=== PATIENT | female | born 1990 | race Caucasian/White ===

== ENCOUNTER 2017-08-07 03:12 | Emergency (ER) | payer MEDICAID ==
[2017-08-07 04:00] LABS: APPEARANCE,URINE CLOUDY; BILIRUBIN,URINE NEGATIVE (NEGATIVE); GLUCOSE, URINE NEGATIVE (NEGATIVE); KETONES,URINE NEGATIVE (NEGATIVE); LEUKOCYTE ESTERASE,URINE LARGE (NEGATIVE); NITRITE,URINE NEGATIVE (NEGATIVE); PROTEIN,URINE 100 mg/dL (NEGATIVE); URINE SPECIFIC GRAVITY 1.009; UROBILINOGEN,URINE NEGATIVE mg/dL (<2.0)
[2017-08-07 05:06] LABS: ABSOLUTE EOSINOPHILS # (AUTO) 0.1 10^3/uL (0.0-0.6); ABSOLUTE LYMPHOCYTES (AUTO) 2.4 10^3/uL (0.5-4.7); ABSOLUTE MONOCYTES (AUTO) 0.8 10^3/uL (0.1-1.4); ABSOLUTE NEUT (AUTO) 9.3 10^3/uL (1.7-8.2); BASOPHILS % (AUTO) 0.4 % (0-2); EOSINOPHILS % (AUTO) 0.5 % (0-6); HEMATOCRIT 33.4 % (36.0-47.0); HEMOGLOBIN 11.4 g/dL (12.0-15.5); HGB HCT DIFFERENCE 0.8; LYMPHOCYTES % (AUTO) 19.1 % (13-45); MEAN CORPUSCULAR HEMOGLOBIN 27.2 pg (27.0-33.4); MEAN CORPUSCULAR HGB CONC 34.1 g/dL (32.0-36.0); MEAN CORPUSCULAR VOLUME 80 fl (80-97); MONOCYTES % (AUTO) 6.5 % (3-13); RED BLOOD COUNT 4.19 10^6/uL (3.72-5.28); RED CELL DISTRIBUTION WIDTH 16.3 % (11.5-14.0); SEGMENTED NEUTROPHILS % (AUTO) 73.5 % (42-78); WHITE BLOOD COUNT 12.6 10^3/uL (4.0-10.5)
[2017-08-07 05:25] LABS: ALANINE AMINOTRANSFERASE 23 U/L (9-52); ALBUMIN 3.9 g/dL (3.5-5.0); ALKALINE PHOSPHATASE 80 U/L (38-126); ANION GAP 11 (5-19); ASPARTATE AMINO TRANSFERASE 12 U/L (14-36); BILIRUBIN,DIRECT 0.3 mg/dL (0.0-0.4); BILIRUBIN,TOTAL 0.3 mg/dL (0.2-1.3); BLOOD UREA NITROGEN 3 mg/dL (7-20); CALCIUM 9.4 mg/dL (8.4-10.2); CARBON DIOXIDE 26 mmol/L (22-30); CHLORIDE 103 mmol/L (98-107); CREATININE RESULT 0.55 mg/dL (0.52-1.25); GLUCOSE 82 mg/dL (75-110); LIPASE 30.1 U/L (23-300); POTASSIUM 3.8 mmol/L (3.6-5.0); SODIUM 140.1 mmol/L (137-145); TOTAL PROTEIN 6.8 g/dL (6.3-8.2)
--- NOTE | 2017-08-07 06:26 | ER Document Report ---
ED GI/ - General Mode of Arrival: Ambulatory Information source: Patient TRAVEL OUTSIDE OF THE [place] IN LAST 30 DAYS: No - HPI Patient complains to provider of: Abdominal pain, Dysuria, Vaginal pain. No: Vaginal discharge Associated symptoms: Other - see above <JESU MO - Last Filed: 08/07/17 11:11> <PARKERMONI ANN - Last Filed: 08/07/17 14:36> - General Chief Complaint: Abdominal Cramping Stated Complaint: LOWER ABDOMINAL PAIN Time Seen by Provider: 08/07/17 06:21 Notes: Patient is a 27 year old female who presents to the ED with complaints of lower abdominal pain (left greater than right). She also started having pain in her back with onset 0300 this morning. She denies nausea. She has vaginal pain, dysuria and has been spotting since 08/01/17. She is sexually active, she denies concern for STD or any vaginal discharge. She is not on the IUD. Her LMP was normal. She denies any nausea. (JESU MO) - Related Data Allergies/Adverse Reactions: acetaminophen [From Vicodin] Adverse Reaction (Verified 08/07/17 03:27) hydrocodone bitartrate [From Vicodin] Adverse Reaction (Verified 08/07/17 03:27) Past Medical History - General Information source: Patient - Social History Smoking Status: Unknown if Ever Smoked Family History: CAD, DM Patient has suicidal ideation: No Patient has homicidal ideation: No Renal/ Medical History: Denies: Hx Peritoneal Dialysis Malignancy Medical History: Reports: Hx Cervical Cancer Musculoskeltal Medical History: Reports Hx Musculoskeletal Deformity, Reports Hx Musculoskeletal Trauma Psychiatric Medical History: Reports: Hx Anxiety Traumatic Medical History: Reports: Hx Fractures Past Surgical History: Reports: Hx Oral Surgery - All teeth pulled .Alveolar bone was shaved on 05-28-16., Hx Orthopedic Surgery - Immunizations Immunizations up to date: Yes Hx Diphtheria, Pertussis, Tetanus Vaccination: Yes <JESU MO - Last Filed: 08/07/17 11:11> Review of Systems - Review of Systems Constitutional: No symptoms reported EENT: No symptoms reported Cardiovascular: No symptoms reported Respiratory: No symptoms reported Gastrointestinal: See HPI, Abdominal pain. denies: Nausea Genitourinary: See HPI, Dysuria. denies: Discharge Female Genitourinary: See HPI, Last menstrual period - was normal, Vaginal bleeding - spotting. denies: Vaginal discharge Musculoskeletal: No symptoms reported Skin: No symptoms reported Hematologic/Lymphatic: No symptoms reported Neurological/Psychological: No symptoms reported <JESU MO - Last Filed: 08/07/17 11:11> Physical Exam - General General appearance: Alert, Other - appears uncomfortable - HEENT Head: Normocephalic, Atraumatic Eyes: Normal Extraocular movements intact: Yes Pupils: PERRL Mucous membranes: Dry - Respiratory Respiratory status: No respiratory distress Breath sounds: Normal - Cardiovascular Rhythm: Regular Heart sounds: Normal auscultation Murmur: No - Abdominal Tenderness: Tender - superpubic tenderness to palpation - Genitourinary External exam: Normal Speculum exam: Normal Bimanuel exam: Other - scant amount of blood present. No: Cervical motion tender, Adnexal tenderness - Back Back: Normal - Extremities General upper extremity: Normal inspection, Normal ROM General lower extremity: Normal inspection, Normal ROM. No: Edema - Neurological Neuro grossly intact: Yes - Psychological Associated symptoms: Normal affect, Normal mood - Skin Skin Temperature: Warm Skin Moisture: Dry Skin Color: Normal <JESU MO - Last Filed: 08/07/17 11:11> - Vital signs Vitals: Temp Pulse Resp BP Pulse Ox 98.7 F 88 18 105/64 99 08/07/17 03:23 08/07/17 03:23 08/07/17 03:23 08/07/17 03:23 08/07/17 03:23 Course - Laboratory Result Diagrams: 08/07/17 04:45 08/07/17 04:45 <JESU MO - Last Filed: 08/07/17 11:11> - Laboratory Result Diagrams: 08/07/17 04:45 08/07/17 04:45 <MONI CANALES - Last Filed: 08/07/17 14:36> - Re-evaluation Re-evalutation: 08/07/17 Patient presents with UTI symptoms. Urine is consistent with this. Patient with no PID or evidence for STD. Feels beter after Ibuprofen. Patient did not want IV and was given IM antibiotics. Patient blood pressure at her baseline. Urine culture sent. Unlikely STD. Gonorrhea and chlamydia negative. Stable for discharge. Return if any worsening or concerning symptoms. (MONI CANALES) - Vital Signs Vital signs: Temp Pulse Resp BP Pulse Ox 97.9 F 93 18 99/62 L 100 08/07/17 08:17 08/07/17 08:25 08/07/17 03:23 08/07/17 08:17 08/07/17 08:17 - Laboratory Laboratory results interpreted by me: 08/07/17 08/07/17 08/07/17 03:30 04:45 04:45 WBC 12.6 H Hgb 11.4 L Hct 33.4 L RDW 16.3 H Absolute Neutrophils 9.3 H BUN 3 L AST 12 L Urine Protein 100 H Urine Blood LARGE H Ur Leukocyte Esterase LARGE H Discharge <JESU MO - Last Filed: 08/07/17 11:11> <MONI CANALES - Last Filed: 08/07/17 14:36> - Discharge Clinical Impression: UTI (urinary tract infection) Qualifiers: Urinary tract infection type: site unspecified Hematuria presence: with hematuria Qualified Code(s): N39.0 - Urinary tract infection, site not specified ; R31.9 - Hematuria, unspecified Condition: Stable Disposition: HOME, SELF-CARE Instructions: Urinary Tract Infection ([facility]) Prescriptions: Cephalexin Monohydrate [Keflex 500 mg Capsule] 500 mg PO TID 7 Days #21 capsule Forms: Return to Work Scribe Attestation: 08/07/17 14:36 I personally performed the services described in the documentation, reviewed and edited the documentation which was dictated to the scribe in my presence, and it accurately records my words and actions. (MONI CANALES) Scribe Documentation - Scribe Written by Deanne:: deanne Asencio, 08/07/2017, 721 acting as scribe for :: Parker <JESU MO - Last Filed: 08/07/17 11:11>
[2017-08-07] MEDS ORDERED: CEFTRIAXONE INJ 500 MG VIAL IM ONE (06:43)
[2017-08-07] MEDS ORDERED: LIDOCAINE 1% INJ-PF (10 MG/ML) 30 ML SDV INFIL ONE (06:43)
[2017-08-07] MEDS ORDERED: IBUPROFEN 800 MG TABLET PO ONE (06:50)
[2017-08-07 08:22] VITALS: BP 99/62
[2017-08-07 10:32] LABS: CHLAM PCR NOT DETECTED (NOT DETECT)
== END 2017-08-07 08:27 | disposition home or self-care (01) ==
LOC: ER 03:12
DX: N39.0 Urinary tract infection, site not specified (principal); R31.9 Hematuria, unspecified; R10.30 Lower abdominal pain, unspecified; M54.9 Dorsalgia, unspecified
CPT/HCPCS: 99284; 96372; 36415; 87086; 87210; 84702; 83690; 85025; 81025; 87088; 80053; 81001; 87186; 87491; 87591; J3490 ×2; J0696

== ENCOUNTER 2018-12-01 19:22 | Emergency (ER) | payer MEDICAID ==
--- NOTE | 2018-12-01 20:35 | ER Document Report ---
ED Medical Screen (RME) - General Chief Complaint: Chest Pain Stated Complaint: POST OP CHEST PAIN Time Seen by Provider: 12/01/18 20:24 Notes: 28-year-old female patient had screws taken out of her right knee Saturday morning in [place]. She later developed pain in her epigastric region and lower anterior thoracic region. She reports that she did cough up some blood at some point after the surgery. The pain is made worse with breathing. There is some confusion and disagreement between her and her spouse as to when this pain started. She initially thought it started later that same day, and he feels confident it was sometime Saturday or closer to Saturday before the pain started. She had contacted her primary care provider, and her orthopedic surgeon. They both recommended she come to the emergency room to be evaluated for blood clots and/or infection. She is quite tender to palpate the epigastric region and along the inferior rib margins bilaterally. It is a little less tender to palpate up underneath the ribs. The sternum is not tender, however the xiphisternum region is tender. I have greeted and performed a rapid initial assessment of this patient. A comprehensive ED assessment and evaluation of the patient, analysis of test results and completion of the medical decision making process will be conducted by additional ED providers. TRAVEL OUTSIDE OF THE [place] IN LAST 30 DAYS: No - Related Data Allergies/Adverse Reactions: acetaminophen [From Vicodin] Adverse Reaction (Verified 08/07/17 03:27) hydrocodone bitartrate [From Vicodin] Adverse Reaction (Verified 08/07/17 03:27) Past Medical History - Social History Frequency of alcohol use: None Drug Abuse: None Renal/ Medical History: Denies: Hx Peritoneal Dialysis Malignancy Medical History: Reports: Hx Cervical Cancer Musculoskeltal Medical History: Reports Hx Musculoskeletal Deformity, Reports Hx Musculoskeletal Trauma Psychiatric Medical History: Reports: Hx Anxiety Traumatic Medical History: Reports: Hx Fractures Past Surgical History: Reports: Hx Oral Surgery - All teeth pulled 04-23-16.Alveolar bone was shaved on 05-28-16., Hx Orthopedic Surgery - Immunizations Immunizations up to date: Yes Hx Diphtheria, Pertussis, Tetanus Vaccination: Yes Physical Exam - Vital signs Vitals: Temp Pulse Resp BP Pulse Ox 98.1 F 103 H 16 109/78 98 12/01/18 19:48 12/01/18 19:48 12/01/18 19:48 12/01/18 19:48 12/01/18 19:48 Course - Vital Signs Vital signs: Temp Pulse Resp BP Pulse Ox 98.1 F 103 H 16 109/78 98 12/01/18 19:48 12/01/18 19:48 12/01/18 19:48 12/01/18 19:48 12/01/18 19:48
[2018-12-01 21:06] LABS: ABSOLUTE LYMPHOCYTES (AUTO) 3.4 10^3/uL (0.5-4.7); ABSOLUTE MONOCYTES (AUTO) 0.7 10^3/uL (0.1-1.4); ABSOLUTE NEUT (AUTO) 5.8 10^3/uL (1.7-8.2); BASOPHILS % (AUTO) 0.4 % (0-2); EOSINOPHILS % (AUTO) 0.3 % (0-6); HEMATOCRIT 34.1 % (36.0-47.0); HEMOGLOBIN 11.5 g/dL (12.0-15.5); LYMPHOCYTES % (AUTO) 34.1 % (13-45); MEAN CORPUSCULAR HEMOGLOBIN 27.3 pg (27.0-33.4); MEAN CORPUSCULAR HGB CONC 33.7 g/dL (32.0-36.0); MEAN CORPUSCULAR VOLUME 81 fl (80-97); MONOCYTES % (AUTO) 6.6 % (3-13); PLATELET COUNT 205 10^3/uL (150-450); RED BLOOD COUNT 4.21 10^6/uL (3.72-5.28); RED CELL DISTRIBUTION WIDTH 14.7 % (11.5-14.0); SEGMENTED NEUTROPHILS % (AUTO) 58.6 % (42-78); TOTAL CELLS COUNTED % (AUTO) 100 %; WHITE BLOOD COUNT 9.9 10^3/uL (4.0-10.5)
[2018-12-01 21:18] LABS: INTERNATIONAL RATION (INR) 1.01; PROTHROMBIN TIME 13.9 SEC (11.4-15.4)
[2018-12-01 21:24] LABS: ALANINE AMINOTRANSFERASE 24 U/L (9-52); ALBUMIN 4.6 g/dL (3.5-5.0); ALKALINE PHOSPHATASE 69 U/L (38-126); ANION GAP 9 (5-19); ASPARTATE AMINO TRANSFERASE 16 U/L (14-36); BILIRUBIN,DIRECT 0.1 mg/dL (0.0-0.4); BILIRUBIN,TOTAL 0.2 mg/dL (0.2-1.3); BLOOD UREA NITROGEN 8 mg/dL (7-20); CALCIUM 9.7 mg/dL (8.4-10.2); CARBON DIOXIDE 28 mmol/L (22-30); CHLORIDE 100 mmol/L (98-107); GLUCOSE 104 mg/dL (75-110); POTASSIUM 3.7 mmol/L (3.6-5.0); TOTAL PROTEIN 7.4 g/dL (6.3-8.2)
[2018-12-01] MEDS ORDERED: NORMAL SALINE 1000 ML 1,000 ML IV ONE (23:13)
[2018-12-01] MEDS ORDERED: MORPHINE SULFATE 10 MG/ML INJ IV PRN (23:14)
[2018-12-01] MEDS ORDERED: KETOROLAC TROMETHAMINE INJ/PF 30 MG/1 ML SDV IV ONE (23:14)
--- NOTE | 2018-12-01 23:15 | ER Document Report ---
ED General - General Chief Complaint: Chest Pain Stated Complaint: POST OP CHEST PAIN Time Seen by Provider: 12/01/18 20:24 Notes: Patient is a 28-year-old female without chronic medical problems who presents complaining of 2 days of bilateral lower rib and subxiphoid pain worse with breathing and movement. Patient describes the pain as being a stabbing, aching pain worse with movement and breathing. She denies any ongoing hemoptysis but does state that she had one episode in which she coughed and there was a small amount of blood several days ago. She does note some mild associated shortness of breath. She recently had surgery done on her right knee. Contacted her general physician and was referred to the emergency department due to concerns of a possible pulmonary embolus. The patient has no prior history of DVT or PE. No use of estrogen. Has not noted that anything seems to improve her symptoms since onset. TRAVEL OUTSIDE OF THE [place] IN LAST 30 DAYS: No - Related Data Allergies/Adverse Reactions: acetaminophen [From Vicodin] Adverse Reaction (Verified 08/07/17 03:27) hydrocodone bitartrate [From Vicodin] Adverse Reaction (Verified 08/07/17 03:27) Past Medical History - General Information source: Patient - Social History Smoking Status: Current Every Day Smoker Frequency of alcohol use: None Drug Abuse: None Lives with: Spouse/Significant other Family History: CAD, DM Patient has suicidal ideation: No Patient has homicidal ideation: No Renal/ Medical History: Denies: Hx Peritoneal Dialysis Malignancy Medical History: Reports: Hx Cervical Cancer Musculoskeletal Medical History: Reports Hx Musculoskeletal Deformity, Reports Hx Musculoskeletal Trauma Psychiatric Medical History: Reports: Hx Anxiety Traumatic Medical History: Reports: Hx Fractures Past Surgical History: Reports: Hx Oral Surgery - All teeth pulled 04-23-16.Alve olar bone was shaved on 05-28-16., Hx Orthopedic Surgery - Immunizations Immunizations up to date: Yes Hx Diphtheria, Pertussis, Tetanus Vaccination: Yes Review of Systems - Review of Systems Notes: Constitutional: Negative for fever. HENT: Negative for sore throat. Eyes: Negative for visual changes. Cardiovascular: Positive for chest pain. Respiratory: Positive for shortness of breath. Gastrointestinal: Negative for abdominal pain, vomiting or diarrhea. Genitourinary: Negative for dysuria. Musculoskeletal: Negative for back pain. Skin: Negative for rash. Neurological: Negative for headaches, weakness or numbness. 10 point ROS negative except as marked above and in HPI. Physical Exam - Vital signs Vitals: Temp Pulse Resp BP Pulse Ox 98.1 F 103 H 16 109/78 98 12/01/18 19:48 12/01/18 19:48 12/01/18 19:48 12/01/18 19:48 12/01/18 19:48 Interpretation: Tachycardic Notes: PHYSICAL EXAMINATION: GENERAL: Appears mildly uncomfortable but in no acute distress HEAD: Atraumatic, normocephalic. EYES: Pupils equal round and reactive to light, extraocular movements intact, sclera anicteric, conjunctiva are normal. ENT: nares patent, oropharynx clear without exudates. Dry mucous membranes. NECK: Normal range of motion, supple without lymphadenopathy LUNGS: Breath sounds clear to auscultation bilaterally and equal. No wheezes rales or rhonchi. Chest wall: Pain on palpation of the lower ribs and subxiphoid space HEART: Regular tachycardia without murmurs ABDOMEN: Soft, nontender, normoactive bowel sounds. No guarding, no rebound. No masses appreciated. EXTREMITIES: Normal range of motion, no pitting or edema. No cyanosis. NEUROLOGICAL: No focal neurological deficits. Moves all extremities spontan eously and on command. PSYCH: Moderately anxious SKIN: Warm, Dry, normal turgor, no rashes or lesions noted. Course - Re-evaluation Re-evalutation: 12/01/18 23:14 Patient presents with bilateral lower rib pain, pain over the xiphoid, increase of breathing with associated shortness of breath and tachycardia. Just had surgery to the right lower extremity, clear worrisome picture for acute PE. Venous Doppler of the right lower extremities is negative. CTA chest pending. Labs unremarkable. Patient's tachycardia is gradually improving with IV fluid resuscitation. 12/02/18 00:20 CTA chest is clear without any evidence of an acute PE. Patient's tachycardia has improved with IV fluids. At this point I suspect that her rib discomfort most likely secondary to recent intubation and surgery as has been ongoing since the postoperative period. I also suspect that her tachycardia was secondary to dehydration. At this time will discharge with return precautions and follow-up recommendations. Verbal discharge instructions given a the bedside and opportunity for questions given. Medication warnings reviewed. Patient is in agreement with this plan and has verbalized understanding of return precautions and the need for primary care follow-up in the next 24-72 hours. - Vital Signs Vital signs: Temp Pulse Resp BP Pulse Ox 98.1 F 103 H 16 109/78 98 12/01/18 19:48 12/01/18 19:48 12/01/18 19:48 12/01/18 19:48 12/01/18 19:48 - Laboratory Result Diagrams: 12/01/18 20:54 12/01/18 20:54 Laboratory results interpreted by me: 12/01/18 20:54 Hgb 11.5 L Hct 34.1 L RDW 14.7 H - Diagnostic Test Radiology reviewed: Reports reviewed - EKG Interpretation by Me Additional EKG results interpreted by me: 12/02/18 03:48 Sinus tachycardia, rate 103. No ST elevations or depressions. QTC is 451. Discharge - Discharge Clinical Impression: Pleuritic pain, Chest wall pain, Dehydration Condition: Good Disposition: HOME, SELF-CARE Additional Instructions: Please follow-up with your general physician and orthopedic surgeon regarding today's concerns. The CAT scan your chest is normal. Your labs are otherwise unremarkable. Please be sure to drink plenty of fluids. Return if you develop worsening pain, difficulty breathing, pass out, or have any other symptoms that are worrisome to you. Referrals: VARUN DIAMOND PA-C [Primary Care Provider] - Follow up as needed
--- NOTE | 2018-12-01 23:47 | RADIOLOGY REPORT (SQ) ---
EXAM DESCRIPTION: CT CHEST ANGIOGRAPHY WITHOUT THEN WITH IV CONTRAST , Three-dimensional reconstructions COMPLETED DATE/TME: 12/01/2018 20:31 CLINICAL HISTORY: 28 years, Female, post op pleuritic chest pain, hemoptysis This exam was performed according to our departmental dose-optimization program which includes automated exposure control, adjustment of the mA and/or kVp according to patient size and/or use of iterative reconstruction technique where applicable. FINDINGS: Pulmonary arteries are well opacified with no suspicious filling defects for acute pulmonary embolism. Aorta is within normal limits with no dissection or aneurysm. No significant mediastinal, hilar or axillary lymphadenopathy. No pleural or pericardial effusions. The visualized upper abdominal organs are within normal limits. Evaluation of the lung parenchyma demonstrates trachea and major airways to be patent. No suspicious lung nodules or masses. No consolidations to suggest pneumonia. IMPRESSION: No acute pulmonary embolism. No acute chest pathology.
--- NOTE | 2018-12-02 00:17 | EKG REPORT ---
SEVERITY:- OTHERWISE NORMAL ECG - SINUS TACHYCARDIA : Confirmed by: Abdirizak Diaz 02-Dec-2018 00:16:17
[2018-12-02 03:48] VITALS: BP 107/62
--- NOTE | 2018-12-02 09:41 | XCELERA REPORT ---
[address] [place] [facility] [address] Lower Extremity Venous Evaluation Procedure: Color flow and duplex imaging of the veins of the right lower extremity as well as the left Common Femoral vein. Right Sided Venous Evaluation Normal vessel filling wall to wall, compression and augmentation as well as Colour flow down to the infrageniculate veins. Left Sided Venous Evaluation The left common femoral vein is fully compressible. Spontaneous and phasic flow is present in the left common femoral vein. Interpretation Summary No duplex evidence of DVT or obstruction in the right lower extremity nor in the left Common Femoral vein. Name: BEL FELDER Age: 28 yrs Gender: Female : 1990 Patient Status: Emergency Patient Location: ER Study Date: 12/01/2018 10:23 PM Reason For Study: eval dvt Ordering Physician: DENICE SMALLWOOD Performed By: Shaneka Duong : DENICE SMALLWOOD > Arvind Giles
== END 2018-12-02 01:20 | disposition home or self-care (01) ==
LOC: ER 19:22
DX: R07.81 Pleurodynia (principal); R07.89 Other chest pain; E86.0 Dehydration; R06.02 Shortness of breath; R00.0 Tachycardia, unspecified; F17.200 Nicotine dependence, unspecified, uncomplicated; Z98.890 Other specified postprocedural states
CPT/HCPCS: 93005; 99283; 96374; 36415; 85025; 85610; 80053; 93971 ×2; 71275; 93010; J1885; J7030

== ENCOUNTER 2020-03-17 13:35 | Emergency (ER) | payer MEDICAID ==
[2020-03-17] MEDS ORDERED: METOCLOPRAMIDE HCL INJ/PF 10 MG/2 ML SDV IV ONE (14:22)
[2020-03-17] MEDS ORDERED: DIPHENHYDRAMINE HCL 50 MG/ML VIAL IV ONE (14:22)
[2020-03-17] MEDS ORDERED: KETOROLAC TROMETHAMINE INJ/PF 30 MG/1 ML SDV IV ONE (14:22)
--- NOTE | 2020-03-17 14:29 | ER Document Report ---
ED General - General Chief Complaint: Nausea/Vomiting Stated Complaint: alcohol Time Seen by Provider: 03/17/20 13:40 Primary Care Provider: VARUN DIAMOND PA-C [Primary Care Provider] - Follow up in 3-5 days Mode of Arrival: Medic Information source: Patient Notes: 29-year-old female presented to ED for complaint of headache neck pain chest pain nausea and vomiting. She states she has drank 4 bottles of vodka over the last 3 days and she does not normally drink. She states she knows she was drunk and has fallen a couple times last night. She states she was at home by herself. She denies any loss of consciousness but she states she was drunk most of the night. She states she has a headache to the right back of her head but does not remember falling on her back only on her front of her body. She states she has vomited numerous times this morning. She states EMS gave her ODT Zofran and it did not do a whole lot of help but she would like something IV with some fluids. She states she is never going to drink again because she has been drunk for so long that she feels manageable. She is alert oriented respirations regular nonlabored speaking in full sentences. TRAVEL OUTSIDE OF THE [place] IN LAST 30 DAYS: No - HPI Onset: Other - States she is doing 4 bottles of vodka over the last 3 days and she has been nausea and vomiting since waking up this morning Onset/Duration: Gradual Quality of pain: Achy, Throbbing Severity: Severe Pain Level: 5 Associated symptoms: Headache, Nausea, Vomiting, Other - She has tenderness to her chest or head or face after falling Exacerbated by: Denies Relieved by: Denies Similar symptoms previously: No Recently seen / treated by doctor: No - Related Data Allergies/Adverse Reactions: acetaminophen [From Vicodin] Adverse Reaction (Verified 03/17/20 13:38) hydrocodone bitartrate [From Vicodin] Adverse Reaction (Verified 03/17/20 13:38) Past Medical History - General Information source: Patient - Social History Smoking Status: Current Every Day Smoker Cigarette use (# per day): Yes - Pack per day Chew tobacco use (# tins/day): No Smoking Education Provided: Yes - 4 minutes Frequency of alcohol use: Occasional - States she does not drink very often but she drank 4 bottles of vodka over the last 3 days Drug Abuse: None Lives with: Alone - With children Family History: CAD, DM Patient has homicidal ideation: No - Past Medical History Cardiac Medical History: Reports: None Pulmonary Medical History: Reports: None EENT Medical History: Reports: None Neurological Medical History: Reports: None Endocrine Medical History: Reports: None Renal/ Medical History: Reports: None Malignancy Medical History: Reports: Hx Cervical Cancer Musculoskeletal Medical History: Reports Hx Musculoskeletal Deformity, Reports Hx Musculoskeletal Trauma Skin Medical History: Reports None Psychiatric Medical History: Reports: Hx Anxiety Traumatic Medical History: Reports: Hx Fractures Infectious Medical History: Reports: None Past Surgical History: Reports: Hx Oral Surgery - All teeth pulled 04-23-16.Alveolar bone was shaved on 05-28-16., Hx Orthopedic Surgery - Immunizations Immunizations up to date: Yes Hx Diphtheria, Pertussis, Tetanus Vaccination: Yes Review of Systems - Review of Systems Constitutional: No symptoms reported EENT: No symptoms reported Cardiovascular: No symptoms reported Respiratory: No symptoms reported Gastrointestinal: Abdominal pain, Nausea, Vomiting Genitourinary: No symptoms reported Female Genitourinary: No symptoms reported Musculoskeletal: No symptoms reported Skin: No symptoms reported Hematologic/Lymphatic: No symptoms reported Neurological/Psychological: Headaches -: Yes All other systems reviewed and negative Physical Exam - Vital signs Vitals: Temp 98.6 F 03/17/20 13:38 Interpretation: Normal - General General appearance: Appears well, Alert - HEENT Head: Normocephalic, Atraumatic Eyes: Normal Pupils: PERRL Visual pagan normal: Yes Ears: Normal External canal: Normal Tympanic membrane: Normal Sinus: Normal Nasal: Normal Mouth/Lips: Normal Mucous membranes: Normal Pharynx: Normal Neck: Normal - Respiratory Respiratory status: No respiratory distress Chest status: Nontender Breath sounds: Normal Chest palpation: Normal - Cardiovascular Rhythm: Regular Heart sounds: Normal auscultation Murmur: No - Abdominal Inspection: Normal Distension: No distension Bowel sounds: Hyperactive Tenderness: Tender Organomegaly: No organomegaly - Back Back: Normal, Nontender - Extremities General upper extremity: Normal inspection, Nontender, Normal color, Normal ROM, Normal temperature General lower extremity: Normal inspection, Nontender, Normal color, Normal ROM, Normal temperature, Normal weight bearing. No: Dell's sign - Neurological Neuro grossly intact: Yes Cognition: Normal Orientation: AAOx4 Elwell Coma Scale Eye Opening: Spontaneous Leida Coma Scale Verbal: Oriented Elwell Coma Scale Motor: Obeys Commands Leida Coma Scale Total: 15 Speech: Normal Cranial nerves: Normal Cerebellar coordination: Normal Motor strength normal: LUE, RUE, LLE, RLE Additional motor exam normals: Equal director of institutional giving Babinski reflex: Normal (flexor plantar) Sensory: Normal Biceps - Reflex grade: 2 = Normal Triceps - Reflex grade: 2 = Normal Brachioradialis - Reflex grade: 2 = Normal Knee - Reflex grade: 2 = Normal Ankle - Reflex grade: 2 = Normal - Psychological Associated symptoms: Normal affect, Normal mood - Skin Skin Temperature: Warm Skin Moisture: Dry Skin Color: Normal Course - Re-evaluation Re-evalutation: 03/17/20 20:41 Patient felt much better after her IV fluids and medications. She was discharged home with instructions to please not drink alcohol. She was i nstructed to please follow-up with a mental health provider if she continued to have problems with alcohol. Patient's mother did call the ER and patient agreed for the provider to talk to the mother. Mother stated that the patient had a long history of alcohol problems and that her father also had a alcohol problem. Other states she was very concerned with the patient's drinking problem. - Vital Signs Vital signs: Temp Pulse Resp BP Pulse Ox 97.7 F 81 18 113/70 100 03/17/20 16:30 03/17/20 16:30 03/17/20 16:30 03/17/20 16:30 03/17/20 16:30 - Laboratory Result Diagrams: 03/17/20 14:45 03/17/20 14:45 Laboratory results interpreted by me: 03/17/20 03/17/20 03/17/20 14:45 14:45 14:45 WBC 11.3 H MCH 26.9 L RDW 19.2 H Lymph % (Auto) 8.0 L Absolute Neuts (auto) 9.7 H Seg Neutrophils % 86.4 H Alkaline Phosphatase 130 H Urine Protein 100 H Urine Ketones 20 H Urine Blood SMALL H Urine Bilirubin SMALL H Urine Urobilinogen 4.0 H Leukocyte Esterase Rfl TRACE H Acetaminophen < 10 L Discharge - Discharge Clinical Impression: Alcohol abuse Nausea & vomiting Qualifiers: Vomiting type: unspecified Vomiting Intractability: non-intractable Qualified Code(s): R11.2 - Nausea with vomiting, unspecified Fall Qualifiers: Encounter type: initial encounter Qualified Code(s): W19.XXXA - Unspecified fall, initial encounter Headache Qualifiers: Headache type: unspecified Headache chronicity pattern: unspecified pattern Intractability: not intractable Qualified Code(s): R51 - Headache Contusion of face Qualifiers: Encounter type: initial encounter Qualified Code(s): S00.83XA - Contusion of other part of head, initial encounter Condition: Stable Disposition: HOME, SELF-CARE Additional Instructions: You were seen today due to drinking a large amount of alcohol for the last 3 days. This is because your nausea vomiting and you are falling several times y esterday. Please seek assistance with counseling if you continue to have a problem with drinking. This can be devastating to multiple systems of your body. HEADACHE: The physician does not feel that the headache you are experiencing has a serious underlying cause. Most headaches are due to emotional stress, with resultant muscle tension (tension headache). Occasionally, headaches are sec ondary to changes in the blood vessels of the scalp (vascular headache and migraine headache). Sometimes, a headache is the first symptom of another developing illness, such as a viral infection. You have no evidence of stroke, bleeding, meningitis, or other serious cause of your headache. The treatment of headaches varies with the severity and cause of the pain. Not all headaches need pain shots. In fact, there is evidence that using narcotics for headaches may make them worse in the long run. The physician will determine the therapy that's in your best interest. If you develop a fever, if the headache is different from any you've previously experienced, or if the headache progressively worsens, then call your physician at once or go to the emergency room. CONTUSION: Your injury has resulted in a contusion -- a crushing of the deep tissues. No injury to important structures was detected during the physician's exam. Contusions vary in the amount of pain they cause, and in the length of time required for healing. Typically, the area will become bruised, and will remain painful to touch for two or three weeks. However, most patients are back to working and playing within a few days. After the initial period of rest and cold-packs, your symptoms (together with the doctor's recommendations) will determine how rapidly you can get back to full activity. Usually this means "do what feels okay, but don't do things that hurt." If re-examination was recommended, it's important to follow up as instructed. Call the doctor or return any time if pain increases, if swelling becomes severe, if you develop numbness or weakness in an injured extremity, or if any other alarming symptoms occur. USE OF TYLENOL (ACETAMINOPHEN): Acetaminophen may be taken for pain relief or fever control. It's much safer than aspirin, offering a wider range of "safe" dosages. It is safe during . Some brand names are Tylenol, Panadol, Datril, Anacin 3, Tempra, and Liquiprin. Acetaminophen can be repeated every four hours. The following are maximum recommended dosages: WEIGHT Dose Drops Elixir Chewable(80 mg) (LBS.) drprs=droppers tsp=teaspoon 6 40 mg 0.4 ml (1/2) 6-11 80 mg 0.8 ml (full) tsp 1 tab 12-16 120 mg 1 1/2 drprs 3/4 tsp 1 1/2 tabs 17-23 160 mg 2 drprs 1 tsp 2 tabs 24-30 240 mg 3 drprs 1 1/2 tsp 3 tabs 30-35 320 mg 2 tsp 4 tabs 36-41 360 mg 2 1/4 tsp 4 1/2 tabs 42-47 400 mg 2 1/2 tsp 5 tabs 48-53 480 mg 3 tsp 6 tabs 54-59 520 mg 3 1/4 tsp 6 1/2 tabs 60-64 560 mg 3 1/2 tsp 7 tabs 65-70 600 mg 3 3/4 tsp 7 1/2 tabs 71-76 640 mg 4 tsp 8 tabs 77-82 720 mg 4 1/2 tsp 9 tabs 83-88 800 mg 5 tsp 10 tabs >89 pounds or adults 650 mg to 900 mg Acetaminophen can be repeated every four hours. Maximum dose not to exceed 4000 mg a day. These maximum recommended dosages are slightly higher than the dosages written on the product container, but these dosages are very safe and below the toxic dosage for acetaminophen. Intravenous (IV) Fluids As part of your care today, you received intravenous (IV) fluids. IV fluids are administered to patients who are dehydrated or to those who have certain chemical (electrolyte) abnormalities that need correcting. USE OF DIPHENHYDRAMINE: Diphenhydramine (Benadryl) is an antihistamine and has been recommended to help treat your headache and to prevent side effects of other medications used to treat headaches. The medication can be repeated four times daily. Age Elixir (12.5 mg/tsp) 25 mg pill adult 1-2 tabs Antihistamines may cause drowsiness, especially with the first dose. Do not operate machinery or drive while under the effects of the medication. Do not combine the medication with alcohol, or with any other medication without talking to your doctor. Acetaminophen Acetaminophen may be taken for pain relief or fever control. It's much safer than aspirin, offering a wider range of "safe" dosages. It is safe during . Some brand names are Tylenol, Panadol, Datril, Anacin 3, Tempra, and Liquiprin. Acetaminophen can be repeated every four hours. The following are maximum recommended dosages: WEIGHT Dose Drops Elixir Chewable(80mg) (LBS.) drprs=droppers tsp=teaspoon 6 40 mg .4 ml (1/2) 6-11 80 mg .8 ml (full) 1/2 tsp 1 tab 12-16 120 mg 1 1/2 drprs 3/4 tsp 1 1/2 tabs 17-23 160 mg 2 drprs 1 tsp 2 tabs 24-30 240 mg 3 drprs 1 1/2 tsp 3 tabs 30-35 320 mg 2 tsp 4 tabs 36-41 360 mg 2 1/4 tsp 4 1/2 tabs 42-47 400 mg 2 1/2 tsp 5 tabs 48-53 480 mg 3 tsp 6 tabs 54-59 520 mg 3 1/4 tsp 6 1/2 tabs 60-64 560 mg 3 1/2 tsp 7 tabs 65-70 600 mg 3 3/4 tsp 7 1/2 tabs 71-76 640 mg 4 tsp 8 tabs 77-82 720 mg 4 1/2 tsp 9 tabs 83-88 800 mg 5 tsp 10 tabs >89 pounds or adults 650 mg to 900 mg Acetaminophen can be repeated every four hours. Maximum daily dose not to exceed 4000 mg. These maximum recommended dosages are slightly higher than the dosages written on the product container, but these dosages are very safe and well below the toxic dosage for acetaminophen. TORADOL INJECTION: You have been given an injection of ketorolac tromethamine (Toradol). This is an excellent, safe drug for pain control. It also has potent antiinflammatory action. You should have significant pain relief within about one hour. Toradol is not addicting and is non-sedating. It does not interfere with driving or work. Call or return if you develop itching, hives, shortness of breath, or rash. FOLLOW-UP CARE: If you have been referred to a physician for follow-up care, call the physicians office for an appointment as you were instructed or within the next two days. If you experience worsening or a significant change in your symptoms, notify the physician immediately or return to the Emergency Department at any time for re-evaluation. Forms: Smoking Cessation Education, Return to Work Referrals: VARUN DIAMOND PA-C [Primary Care Provider] - Follow up in 3-5 days
[2020-03-17] MEDS: RINGERS SOLUTION,LACTATED 1,000 ML IV PRN ×2 (14:47→14:57)
[2020-03-17 15:06] LABS: ABSOLUTE BASOPHILS # (AUTO) 0.1 10^3/uL (0.0-0.2); ABSOLUTE LYMPHOCYTES (AUTO) 0.9 10^3/uL (0.5-4.7); ABSOLUTE MONOCYTES (AUTO) 0.6 10^3/uL (0.1-1.4); ABSOLUTE NEUT (AUTO) 9.7 10^3/uL (1.7-8.2); BASOPHILS % (AUTO) 0.5 % (0-2); HEMATOCRIT 40.1 % (36.0-47.0); HEMOGLOBIN 13.3 g/dL (12.0-15.5); MEAN CORPUSCULAR HEMOGLOBIN 26.9 pg (27.0-33.4); MEAN CORPUSCULAR HGB CONC 33.2 g/dL (32.0-36.0); MEAN CORPUSCULAR VOLUME 81 fl (80-97); MONOCYTES % (AUTO) 5.1 % (3-13); PLATELET COUNT 216 10^3/uL (150-450); RED BLOOD COUNT 4.96 10^6/uL (3.72-5.28); RED CELL DISTRIBUTION WIDTH 19.2 % (11.5-14.0); SEGMENTED NEUTROPHILS % (AUTO) 86.4 % (42-78); TOTAL CELLS COUNTED % (AUTO) 100 %; WHITE BLOOD COUNT 11.3 10^3/uL (4.0-10.5)
[2020-03-17 15:14] LABS: APPEARANCE,URINE SLIGHTLY-CLOUDY; BILIRUBIN,URINE SMALL (NEGATIVE); COLOR,URINE AMBER; GLUCOSE, URINE NEGATIVE (NEGATIVE); KETONES,URINE 20 mg/dL (NEGATIVE); PROTEIN,URINE 100 mg/dL (NEGATIVE); URINE SPECIFIC GRAVITY 1.028
--- NOTE | 2020-03-17 15:16 | RADIOLOGY REPORT (SQ) ---
EXAM DESCRIPTION: CHEST 2 VIEWS IMAGES COMPLETED DATE/TIME: 03/17/2020 3:04 pm REASON FOR STUDY: rib tenderness COMPARISON: 09/27/2015. EXAM PARAMETERS: NUMBER OF VIEWS: two views TECHNIQUE: Digital Frontal and Lateral radiographic views of the chest acquired. RADIATION DOSE: NA LIMITATIONS: none FINDINGS: LUNGS AND PLEURA: No opacities, masses or pneumothorax. No pleural effusion. MEDIASTINUM AND HILAR STRUCTURES: No masses or contour abnormalities. HEART AND VASCULAR STRUCTURES: Heart normal size. No evidence for failure. BONES: No acute findings. HARDWARE: None in the chest. OTHER: No other significant finding. IMPRESSION: NO ACUTE RADIOGRAPHIC FINDING IN THE CHEST. TECHNICAL DOCUMENTATION: JOB ID: [id number] 2010 [employer]- All Rights Reserved Reading location - IP/workstation name: [email or web address]
[2020-03-17 15:30] LABS: ALBUMIN 4.7 g/dL (3.5-5.0); ALKALINE PHOSPHATASE 130 U/L (38-126); ANION GAP 11 (5-19); ASPARTATE AMINO TRANSFERASE 22 U/L (14-36); BILIRUBIN,TOTAL 0.7 mg/dL (0.2-1.3); BLOOD UREA NITROGEN 9 mg/dL (7-20); CALCIUM 9.4 mg/dL (8.4-10.2); CARBON DIOXIDE 28 mmol/L (22-30); CHLORIDE 100 mmol/L (98-107); GLUCOSE 96 mg/dL (75-110); POTASSIUM 4.3 mmol/L (3.6-5.0); TOTAL PROTEIN 8.1 g/dL (6.3-8.2); URINE AMPHETAMINES SCREEN NEGATIVE; URINE BARBITURATES SCREEN NEGATIVE; URINE BENZODIAZEPINES SCREEN NEGATIVE; URINE COCAINE SCREEN NEGATIVE; URINE METHADONE SCREEN NEGATIVE; URINE PHENCYCLIDINE SCREEN NEGATIVE
[2020-03-17 15:31] LABS: ACETAMINOPHEN < 10 ug/mL (10-30); ALCOHOL < 10 mg/dL (NONE DETECTED); URINE MARIJUANA (THC) SCREEN UNCONFIRMED POSITIVE
[2020-03-17] MEDS ORDERED: ACETAMINOPHEN 325 MG TABLET PO ONE (15:54)
[2020-03-17 16:22] VITALS: BP 113/70
== END 2020-03-17 16:29 | disposition home or self-care (01) ==
LOC: ER 13:35
DX: S00.83XA Contusion of other part of head, initial encounter (principal); F10.10 Alcohol abuse, uncomplicated; R11.2 Nausea with vomiting, unspecified; R51 Headache; M54.2 Cervicalgia; R07.9 Chest pain, unspecified; F17.210 Nicotine dependence, cigarettes, uncomplicated; W19.XXXA Unspecified fall, initial encounter
CPT/HCPCS: 99284; 96361; 96374; 96375; 36415; 80307 ×3; 83690; 84703; 85025; 80053; 81001; 71046; J3490; J1200; J1885; J2765; J7120